=== PATIENT | male | born 1955 | race Caucasian/White ===

== ENCOUNTER → 2017-01-26 | Outpatient (CLI) | payer BC ==
[~2017-01-26] MED LIST: KEFLEX500 MG PO; METFORMIN HCL500 M4 PO; NORVASC5 MG PO; PRAVACHOL40 MG PO
== END | disposition home or self-care (01) ==
LOC: CDC 10:51
DX: Z01.810 Encounter for preprocedural cardiovascular examination (principal)
CPT/HCPCS: 93000

== ENCOUNTER 2017-02-20 23:06 | Emergency (ER) | payer BC ==
[~2017-02-20] VITALS: Ht 180.3 cm; Wt 105.9 kg
[2017-02-21 00:45] LABS: ADD MIUA? YES; BILIRUBIN NEGATIVE; BLOOD LARGE; COLOR YELLOW ((YELLOW)); GLUCOSE (STRIP) NEGATIVE; KETONES NEGATIVE; LEUKOCYTES TRACE; NITRITE NEGATIVE; PROTEIN (STRIP) 30; SPECIFIC GRAVITY 1.015 (1.000-1.030); UROBILINOGEN 0.2 MG/DL (0.2-1.0)
[2017-02-21 01:03] LABS: EOSINOPHIL (%) 0.2 % (0-5); HEMATOCRIT 44.6 % (38.0-50.0); IMMATURE GRANULOCYTE (%) 0.6 % (0.0-0.7); IMMATURE GRANULOCYTE COUNT 0.1 K/uL; INSTRUMENT ABS NEUTROPHIL CT 11.2 K/uL; LYMPHOCYTE COUNT 0.8 K/uL (1.0-2.8); MCH 29.4 PG (29.0-34.0); MCHC 33.6 G/DL (30.0-36.0); MCV 87.5 FL (86-99); MONOCYTE (%) 2.5 % (3-12); MONOCYTE COUNT 0.3 K/uL (0-0.8); NEUTROPHIL (%) 90.1 % (45-76); NEUTROPHIL COUNT 11.2 K/uL (1.8-6.4); PLATELET COUNT 250 K/uL (156-360); RBC DIS.WIDTH-CV 12.9 % (11.8-14.6); RBC DIS.WIDTH-SD 41.8 % (39-53); WHITE BLOOD COUNT 12.4 K/uL (4.1-10.2)
[2017-02-21] MEDS ORDERED: PERCOCET 5/31 TABLET PO (01:05)
[2017-02-21] MEDS ORDERED: CIPRO500 MG PO (01:05)
[2017-02-21 01:09] LABS: RED BLOOD CELLS TNTC /HPF (0-5)
[2017-02-21 01:10] LABS: BACTERIA 1+ /HPF; CALCIUM OXALATE CRYSTALS RARE /HPF; CASTS PRESENT /LPF; CRYSTALS PRESENT; EPITHELIAL CELLS RARE /HPF; HYALINE CASTS 0-5 /LPF; MUCUS RARE /LPF; UCUL ADDED? YES
[2017-02-21 01:13] LABS: CHLORIDE 110 mEq/L (99-109); SODIUM 140 mEq/L (136-147)
[2017-02-21 01:16] LABS: ANION GAP 7 MEQ/L (2-14)
[2017-02-21 01:19] LABS: GFR ESTIMATE (CALCULATED) > 59 mL/min/
[2017-02-21 01:20] LABS: UREA NITROGEN (BUN) 21 mg/dL (9-23)
[2017-02-21 01:33] LABS: GLUCOSE 150 mg/dL (70-99)
[2017-02-21 02:06] VITALS: BP 154/87
== END 2017-02-21 02:09 | disposition home or self-care (01) ==
LOC: EME 23:06
PROVIDERS: Emergency Medicine
DX: N20.0 Calculus of kidney (principal); E11.9 Type 2 diabetes mellitus without complications; E78.5 Hyperlipidemia, unspecified; I10 Essential (primary) hypertension; Z87.442 Personal history of urinary calculi; Z79.84 Long term (current) use of oral hypoglycemic drugs
CPT/HCPCS: 74176; 80048; 81003; 85025; 87086; J3010